=== PATIENT | male | born 1985 | race Hispanic/Latino ===

== ENCOUNTER 2017-12-22 01:56 | Observation (INO) | payer SELFPAY ==
[2017-12-22] MEDS ORDERED: Fentanyl 100 MCG/2 ML VIAL ONE ×3 (02:03→03:38)
[2017-12-22] MEDS ORDERED: Adacel (T-DAP) 0.5 ML VIAL ONE (02:03)
[2017-12-22] MEDS ORDERED: CEFAZOLIN/Water 2 GM/20 ML SYRINGE ONE (02:12)
[2017-12-22 02:38] LABS: INR-International Normal Ratio 1.2; PTT 26.3 SEC (22.9-36.1); Prothrombin Time 15.1 SEC (12.0-14.7)
[2017-12-22 02:48] LABS: Hemoglobin 15.1 g/dL (14.0-18.0); Lymphocytes 60 % (21-51); MDiff Complete? YES; Mean Corpuscular HGB CONC 35.2 g/dL (32.0-36.0); Mean Platelet Volume 7.7 fL (7.4-10.4); Monocytes 2 % (0-10); Neutrophil 38 % (42-75); PLT Morphology Comment Appears Adequate; Platelet Count 240 thou/uL (130-400); RBC Distribution Width 11.2 % (11.5-14.5); Red Blood Cell (RBC) Count 4.72 mill/uL (4.70-6.10); White Blood Cell (WBC) Count 9.2 thou/uL (4.8-10.8)
[2017-12-22 02:53] LABS: Anion Gap 18 mmol/L (10-20); BUN (Urea Nitrogen) 9 mg/dL (8.9-20.6); Calc. Creatinine Clearance 0 mL/min (70-130); Calcium 9.8 mg/dL (7.8-10.44); Carbon Dioxide 21 mmol/L (22-29); Chloride 107 mmol/L (98-107); Estimated GFR-MDRD Greater than 90; Glucose 122 mg/dL (70-105); Sodium 143 mmol/L (136-145)
[2017-12-22] MEDS ORDERED: Ondansetron HCl/PF 4 MG/2 ML Vial IVP PRN (03:32)
[2017-12-22] MEDS ORDERED: Dextrose 5% in Water 1,000 ML IV PRN (03:32)
[2017-12-22] MEDS ORDERED: Dextrose 50% Abboject 50 ML SYRINGE SLOW IVP PRN (03:32)
[2017-12-22] MEDS ORDERED: Sodium Chloride 0.9% 1,000 ML IV SCH (03:45)
[2017-12-22 04:37] VITALS: BMI 24.5
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
[2017-12-22] MEDS ORDERED: Potassium Chloride 20 MEQ in Premix Bag 1 BAG IVPB SCH (05:00)
[2017-12-22] MEDS ORDERED: Ketorolac Tromethamine 30 MG/ML VIAL IVP SCH (08:00)
[2017-12-22] MEDS ORDERED: Ibuprofen 800 MG TAB PO SCH (08:00)
[2017-12-22] MEDS: traMADol HCl 50 MG TAB PO SCH ×2 (08:08→13:55)
[2017-12-22] MEDS: traMADol HCl 50 MG TAB PO PRN ×2 (08:08→13:56)
[2017-12-22] MEDS: Acetaminophen 500 MG TAB PO SCH ×2 (08:09→13:56)
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
[2017-12-22] MEDS ORDERED: Famotidine/PF 20 mg/2ml Vial SLOW IVP SCH (09:00)
[2017-12-22 12:06] VITALS: BP 149/84; TEMP 98.4
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
== END 2017-12-22 14:23 | disposition home or self-care (01) ==
LOC: ERS 01:56 → EDBD 01:56 → SURG A 04:09 → INTOOBSV 04:09
PROVIDERS: ADMIT Surgery; ATTEND Surgery
DX: S71.142A Puncture wound with foreign body, left thigh, initial encounter (principal); E87.6 Hypokalemia; Z79.899 Other long term (current) drug therapy; X95.9XXA Assault by unspecified firearm discharge, initial encounter; Y92.89 Other specified places as the place of occurrence of the external cause; Y99.2 Volunteer activity
CPT/HCPCS: 80048; 85025; 85610; 85730; 86850; 86900; 86901; 90471; 90715; 93005; 94760; 96361; 96365; 96366; 96374; 96375; 96376; 99292; G0378; G8978-GP-CI; G8979-GP-CI; G8980-GP-CI; J1885; J2270; J3010; J3480